=== PATIENT | male | born 1980 | race American Indian/Alaskan Native ===

== ENCOUNTER 2017-01-04 22:10 | Emergency (ER) | payer BC ==
[2017-01-04] MEDS ORDERED: TYLENOL ONE (22:49)
[2017-01-04] MEDS ORDERED: TYLENOL PO ONE (23:05)
--- NOTE | 2017-01-05 01:16 | XRay Report ---
FINAL REPORT PROCEDURE: XR HAND 3+V RT TECHNIQUE: Right hand radiographs, AP, lateral, and oblique views. CPT 44570 HISTORY: Impact, Rt 2nd digit, send for report COMPARISON: No prior studies are available for comparison. FINDINGS: Fracture (s) and/or Dislocation(s): None . Alignment: Normal . Joint space(s): Normal . Soft tissues: There is soft tissue swelling of the 2nd digit. There is no foreign body.. Bone mineralization: Normal . Foreign bodies: None . IMPRESSION: There is no fracture or dislocation. There is soft tissue swelling of the 2nd digit..
[2017-01-05] MEDS ORDERED: XYLOCAINE 2%/ EPI 1:200,000 INFILTRATI ONE ×2 (03:38→04:15)
[2017-01-05] MEDS ORDERED: NORCO 5/325 ONE (04:08)
[2017-01-05] MEDS ORDERED: NORCO 5/325 PO ONE (04:13)
[2017-01-05 08:19] VITALS: BP 141/89
[2017-01-05] MEDS ORDERED: BOOSTRIX IM ONE (08:23)
--- NOTE | 2017-01-05 08:27 | Emergency Department Report ---
ED Laceration HPI - HPI Chief Complaint: Wound/Laceration Stated Complaint: R INDEX FINGER LACERATION Time Seen by Provider: 01/05/17 07:22 Occurred When: Today Location: Upper Extremity Severity: mild Tetanus Status: Not up to Date Laceration Symptoms: Yes Pain, No Foreign Body Sensation, No Numbness, No Weakness Other History: 36-year-old male presents to the ED with laceration to the right second finger. States that he smashed it between 2 objects and it cut through the distal portion of the fingertip. States full range of motion of finger. States bleeding is controlled. States tetanus is not up-to-date. ED Review of Systems ROS: Stated complaint: R INDEX FINGER LACERATION Other details as noted in HPI Constitutional: denies: chills, fever Eyes: denies: eye pain, eye discharge, vision change ENT: denies: ear pain, throat pain Respiratory: denies: cough, shortness of breath, wheezing Cardiovascular: denies: chest pain, palpitations Endocrine: no symptoms reported Gastrointestinal: denies: abdominal pain, nausea, diarrhea Genitourinary: denies: urgency, dysuria Musculoskeletal: denies: back pain, joint swelling, arthralgia Skin: other (laceration). denies: rash, lesions Neurological: denies: headache, weakness, paresthesias Psychiatric: denies: anxiety, depression Hematological/Lymphatic: denies: easy bleeding, easy bruising ED Past Medical Hx - Past Medical History Previous Medical History?: No - Surgical History Past Surgical History?: No - Social History Smoking Status: Never Smoker Substance Use Type: None - Medications Home Medications: Home Medications Medication Instructions Recorded Confirmed Last Taken Type Cephalexin [Keflex] 500 mg PO Q6HR #28 capsule 01/05/17 Unknown Rx traMADol [Ultram 50 MG tab] 50 mg PO Q6HR PRN #14 tablet 01/05/17 Unknown Rx Laceration Physical Exam - Exam General: Vital signs noted. No distress. Alert and acting appropriately. Wound Length (cm): 3 Laceration Location: Upper Extremity (left distal second digit) Laceration Exam: Yes Normal Distal CMS, No Foreign Body, No Exposed Tendon, Vessel, or Nerve, No Tendon Injury ED Course Vital Signs 01/04/17 01/05/17 01/05/17 22:20 03:18 08:16 Temperature 97.9 F 97.7 F Pulse Rate 52 L 60 52 L Respiratory 16 18 16 Rate Blood Pressure 128/88 Blood Pressure 135/88 141/89 [Right] O2 Sat by Pulse 99 99 99 Oximetry - Procedure Description Procedures done: Betadine used to cleanse the area. 2% lidocaine used to do digital block of the right second digit. 6 mL used of lidocaine 2%. Anesthesia achieved of the entire finger. Normal saline used to irrigate the finger. 4-0 Prolene sutures used. 5 sutures placed. Patient tolerated procedure well. ED Medical Decision Making - Medical Decision Making Patient resting comfortably at this time. Suture is complete. Critical care attestation.: If time is entered above; I have spent that time in minutes in the direct care of this critically ill patient, excluding procedure time. ED Disposition Clinical Impression: Laceration of right index finger w/o foreign body w/o damage to nail Disposition: DC-01 TO HOME OR SELFCARE Is pt being admited?: No Does the pt Need Aspirin: No Condition: Good Instructions: Laceration (ED) Prescriptions: Cephalexin [Keflex] 500 mg PO Q6HR #28 capsule traMADol [Ultram 50 MG tab] 50 mg PO Q6HR PRN #14 tablet PRN Reason: Pain Referrals: PRIMARY CARE, [Primary Care Provider] - 3-5 Days Forms: Work/School Release Form(ED) Time of Disposition: 08:27
== END 2017-01-05 08:59 | disposition home or self-care (01) ==
LOC: ED 22:10
DX: S61.210A Laceration without foreign body of right index finger without damage to nail, initial encounter (principal); W23.1XXA Caught, crushed, jammed, or pinched between stationary objects, initial encounter; Y93.89 Activity, other specified; Y92.89 Other specified places as the place of occurrence of the external cause; Y99.8 Other external cause status
CPT/HCPCS: 90471; 90715